=== PATIENT | female | born 1995 | race African-American/Black ===

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

== ENCOUNTER → 2017-05-18 | Outpatient (CLI) | payer BC ==
--- NOTE | 2017-05-18 09:26 | DIAGNOSTIC IMAGING REPORT ---
CHEST 2 VIEWS ROUTINE CLINICAL HISTORY: 21 years-old Female presenting with R06.02 Shortness of [id number]. TECHNIQUE: PA and lateral views of the chest were obtained. COMPARISON: 04/22/2016. FINDINGS: Cardiomediastinal silhouette normal. Lungs and pleural spaces clear. Osseous structures normal. Upper abdomen normal. IMPRESSION: 1. No acute cardiopulmonary disease. Electronically signed by: Farzad Nathan M.D. 05/18/2017 9:24 AM Dictated Date/Time: 05/18/2017 9:23 AM
== END | disposition home or self-care (01) ==
LOC: C.RAD1850 09:16
PROVIDERS: ATTEND Physician Assistant
DX: R06.02 Shortness of breath (principal)